=== PATIENT | male | born 1945 | race Caucasian/White ===

== ENCOUNTER 2017-07-15 11:46 | Emergency (ER) | payer OTHER ==
[~2017-07-15] VITALS: Ht 180.3 cm; Wt 84.1 kg
[~2017-07-15 11:46] MED LIST: ASPI81TA82 PO; ATOR20TA42 PO; CLON.1 PO; DOCU100T9 PO; ISOS60 PO; LISI-360 PO; METO100T PO; MOBI7.5T PO; NITR0.4S SL; OMEP20TA PO; SENN8.6T80 PO; SERT-132 PO
[2017-07-15 12:02] VITALS: BP 192/96; PULSE 62; RESP 16; TEMP 98.4; O2SAT 99
[2017-07-15] MEDS ORDERED: cloNIDine HCL 0.1 MG TAB PO ONE (12:45)
[2017-07-15] MEDS ORDERED: ISOS60TA PO (12:49)
[2017-07-15] MEDS ORDERED: NITR1SUB3 SL (12:49)
[2017-07-15] MEDS ORDERED: ASPI81CH CHEW (12:49)
[2017-07-15] MEDS ORDERED: SENN8.6T81 PO (12:49)
[2017-07-15] MEDS ORDERED: TRAM50TA PO (12:49)
[2017-07-15] MEDS ORDERED: METO100T PO ×2 (12:49)
[2017-07-15] MEDS ORDERED: MELO7.5T4 PO (12:49)
[2017-07-15] MEDS ORDERED: ATOR40TA16 PO (12:49)
[2017-07-15] MEDS ORDERED: SERT25TA83 PO (12:49)
[2017-07-15] MEDS ORDERED: FISHCAP4 PO (12:49)
[2017-07-15] MEDS ORDERED: OMEP20TA PO (12:49)
[2017-07-15] MEDS ORDERED: DOCU100C PO (12:49)
[2017-07-15] MEDS ORDERED: LISI-515 PO (12:49)
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
== END 2017-07-15 13:18 | disposition home or self-care (01) ==
LOC: PHED 11:46
DX: I10 Essential (primary) hypertension (principal); H91.90 Unspecified hearing loss, unspecified ear; E78.00 Pure hypercholesterolemia, unspecified; I25.2 Old myocardial infarction; Z95.1 Presence of aortocoronary bypass graft
CPT/HCPCS: 99283

== ENCOUNTER 2018-04-18 16:04 | Emergency (ER) | payer OTHER ==
[~2018-04-18] VITALS: Ht 177.8 cm; Wt 85.0 kg
[~2018-04-18 16:04] MED LIST changes: +ASPI-516 CHEW; -ASPI81TA82 PO; -ATOR20TA42 PO; +ATOR40TA16 PO; -CLON.1 PO; +DOCU100C15 PO; -DOCU100T9 PO; +FISHCAP4 PO; -ISOS60 PO; +ISOS60TA PO; -LISI-360 PO; +LISI-515 PO; +MELO7.5T27 PO; -MOBI7.5T PO; -NITR0.4S SL; +NITR1SUB3 SL; -OMEP20TA PO; +OMEP20TA93 PO; -SENN8.6T80 PO; +SENN8.6T81 PO; -SERT-132 PO; +SERT25TA83 PO; +TRAM50TA PO
[2018-04-18 16:14] VITALS: BP 235/107; PULSE 71; RESP 22; O2SAT 99
[2018-04-18] MEDS ORDERED: SODIUM CHLOR 0.9% 1000 ML INJ 1,000 ML IV SCH (17:30)
[2018-04-18] MEDS ORDERED: METOCLOPRAMIDE HCL 10 MG/2 ML VIAL IV PUSH ONE (17:30)
[2018-04-18] MEDS ORDERED: hydrALAZINE HCL 20 MG/ML VIAL IV PUSH ONE ×2 (17:30→19:00)
[2018-04-18] MEDS ORDERED: diphenhydrAMINE HCL 50 MG/ML VIAL IV PUSH ONE (17:30)
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
[2018-04-18 17:58] VITALS: O2SAT 99
[2018-04-18 18:25] LABS: AUTOMATED NEUTROPHIL # 7.1 TH/MM3 (1.8-7.7); BASOPHIL % 0.4 % (0.0-2.0); EOSINOPHIL # 0.1 TH/MM3 (0-0.4); EOSINOPHIL % 0.7 % (0.0-4.0); HEMATOCRIT 37.5 % (39.0-51.0); LYMPH % 8.8 % (9.0-44.0); LYMPHOCYTE # 0.7 TH/MM3 (1.0-4.8); MEAN CELL VOLUME 99.6 FL (80.0-100.0); MEAN CORPUSCULAR HEMOGLOBIN 34.4 PG (27.0-34.0); MEAN CORPUSCULAR HGB CONC 34.6 % (32.0-36.0); MEAN PLATELET VOLUME 9.3 FL (7.0-11.0); MONO % 3.5 % (0.0-8.0); MONOCYTE # 0.3 TH/MM3 (0-0.9); NEUT % 86.6 % (16.0-70.0); PLATELET COUNT 157 TH/MM3 (150-450); RED BLOOD COUNT 3.76 MIL/MM3 (4.50-5.90); RED CELL DISTRIBUTION WIDTH 14.5 % (11.6-17.2); WHITE BLOOD COUNT 8.1 TH/MM3 (4.0-11.0)
[2018-04-18 18:26] LABS: BILIRUBIN, URINE NEG (NEG); BLOOD, URINE SMALL (NEG); GLUCOSE,URINE NEG (NEG); KETONE, URINE NEG (NEG); MUCUS URINE FEW /lpf (OCC); NITRITE,URINE NEG (NEG); SQUAMOUS EPITHELIAL CELL URINE <1 /hpf (0-5); URINE COLOR YELLOW (YELLW/STRAW); URINE LEUKOCYTE ESTERASE TRACE (NEG)
[2018-04-18 18:35] LABS: PROTHROMBIN TIME - PATIENT 10.2 SEC (9.8-11.6)
[2018-04-18 18:58] LABS: ALT (GPT) 17 U/L (12-78)
[2018-04-18 19:05] LABS: ALBUMIN 4.1 GM/DL (3.4-5.0); AST (GOT) 25 U/L (15-37); BICARBONATE 22.9 MEQ/L (21.0-32.0); BLOOD UREA NITROGEN 20 MG/DL (7-18); CALCIUM 8.8 MG/DL (8.5-10.1); CHLORIDE 106 MEQ/L (98-107); CREATININE 1.17 MG/DL (0.60-1.30); GLOMERULAR FILTRATION RATE 61 ML/MIN (>89); GLUCOSE,RANDOM 107 MG/DL (74-106); SODIUM (NA) 138 MEQ/L (136-145)
[2018-04-18 19:09] LABS: ALKALINE PHOSPHATASE 107 U/L (45-117); TOTAL BILIRUBIN ADULT 0.7 MG/DL (0.2-1.0); TOTAL PROTEIN 7.8 GM/DL (6.4-8.2)
[2018-04-18] MEDS ORDERED: cloNIDine HCL 0.1 MG TAB PO ONE (20:15)
[2018-04-18] MEDS ORDERED: LABETALOL HCL 100 MG/20 ML VIAL IV PUSH ONE (20:15)
[2018-04-18] MEDS ORDERED: LORazepam 2 MG/ML VIAL ONE (20:52)
[2018-04-18] MEDS ORDERED: LORazepam 2 MG/ML VIAL IV PUSH ONE (21:00)
[2018-04-18 21:05] VITALS: BP 185/86; PULSE 81; RESP 18; O2SAT 97
[2018-04-18 21:27] VITALS: BP 164/72; PULSE 77; RESP 18; O2SAT 96
[2018-04-18 21:46] VITALS: BP 129/60; PULSE 77; RESP 16; O2SAT 96
--- NOTE | 2018-04-18 22:20 | RADRPT ---
EXAM DATE: 04/18/2018 10:01 PM EDT AGE/SEX: 72 years / Male INDICATIONS: Headache, high blood pressure CLINICAL DATA: This is the patient's initial encounter. Patient reports that signs and symptoms have been present for 1 day and indicates a pain score of 3/10. MEDICAL/SURGICAL HISTORY: Cardiovascular disease. Hypertension. Diabetes. Syncope, throat cancer None. RADIATION DOSE: 40.33 CTDI (mGy) COMPARISON: [facility] [place], CT BRAIN W/O CONTRAST, 06/26/2016. . TECHNIQUE: CT of the head without contrast. Using automated exposure control and adjustment of the mA and/or kV according to patient size, radiation dose was kept as low as reasonably achievable to ob tain optimal diagnostic quality images. FINDINGS: Cerebrum: The ventricles are normal for age. No evidence of midline shift, mass lesion, hemorrhage or acute infarction. No extraaxial fluid collections are seen. Posterior Fossa: The cerebellum and brainstem are intact. The 4th ventricle is midline. The cerebe llopontine angle is unremarkable. Extracranial: The visualized portion of the orbits is intact. Skull: The calvaria is intact. No evidence of skull fracture. CONCLUSION: 1. No acute intracranial abnormalities. Chronic opacification of the right maxillary sinus similar t o 2015. Electronically signed by: Gael Paige MD 04/18/2018 10:19 PM EDT
[2018-04-18] MEDS ORDERED: PROM25TA10 PO (22:27)
[2018-04-18 22:40] VITALS: BP 118/58; PULSE 88; RESP 18; O2SAT 99
--- NOTE | 2018-04-19 13:46 | EKG ---
Date Performed: 04/18/2018 Time Performed: 16:25:39 PTAGE: 72 years EKG: SINUS BRADYCARDIA POSSIBLE LEFT ATRIAL ENLARGEMENT MARKED LEFT AXIS DEVIATION PATTERN CONSI STENT WITH PULMONARY DISEASE NONSPECIFIC ST ELEVATION ABNORMAL ECG PREVIOUS TRACING 06/26/16 Rate has slowed since prior tracing. DOCTOR: Mike Sanders Interpretating Date/Time 04/19/2018 13:45:20
== END 2018-04-18 23:09 | disposition home or self-care (01) ==
LOC: NEPD 16:04
DX: I10 Essential (primary) hypertension (principal); K52.9 Noninfective gastroenteritis and colitis, unspecified; E11.9 Type 2 diabetes mellitus without complications; R94.31 Abnormal electrocardiogram [ECG] [EKG]; I25.2 Old myocardial infarction; I25.10 Atherosclerotic heart disease of native coronary artery without angina pectoris; Z79.82 Long term (current) use of aspirin
CPT/HCPCS: 70450; 80053; 81001; 84443; 85025; 85610; 85730; 93005; 96361; 96374; 96375; 96376; 99285; J0360; J1200; J2060; J2765; J7030